=== PATIENT | male | born 1945 | race American Indian/Alaskan Native ===

== ENCOUNTER → 2021-11-06 | Emergency (ER) | payer SELFPAY ==
[~2021-11-06] MED LIST: CALCIUM CHLORIDE 1,000 MG/10 ML SYRINGE IV ONE; DOPamine DRIP 800 MG/D5W 250ML PreMix IV ONE; EPINEPHrine 1 MG/10 ML SYRINGE ONE; NALOXONE 0.4 MG/1 ML INJ ONE; SODIUM BICARB 8.4% 50 MEQ/50 ML SYRINGE IV ONE
--- NOTE | 2021-11-06 21:49 | Emergency Department Report ---
ED General Adult HPI - General Stated complaint: CARDIAC ARREST Source: EMS - History of Present Illness Initial comments: Patient presents to the emergency department via EMS for cardiac arrest. Patient arrives intubated with active bagging. Per EMS the patient was at home after working in his yard and was found unresponsive by his son in a chair of the living room. CPR was started by the patient's son and upon EMS arrival ACLS protocol was followed with return of spontaneous circulation. Per EMS the patient has a history of hypertension and previous blood clot. -: Sudden Improves with: none Worsens with: none Treatments Prior to Arrival: other (ACLS) ED Review of Systems ROS: Stated complaint: CARDIAC ARREST Other details as noted in HPI Comment: Unobtainable due to pts medical conditions ED Physical Exam - General General appearance: other (Intubated with chest compressions being provided) - Head Head exam: Present: atraumatic, normocephalic - Eye Eye exam: Present: normal appearance - ENT ENT exam: Present: mucous membranes dry - Respiratory Respiratory exam: Present: other (Breath sounds bilaterally with BVM) - Cardiovascular Cardiovascular Exam: Present: other (Asystole) - GI/Abdominal GI/Abdominal exam: Present: soft, distended. Absent: normal bowel sounds - Extremities Exam Extremities exam: Present: pedal edema - Neurological Exam Neurological exam: Present: other (GCS: 3T) - Psychiatric Psychiatric exam: Present: other (Not able to assess due to the patient's condition) - Skin Skin exam: Present: dry, intact - Central Line Placement Left Femoral Consent Obtained: emergent situation Time Out Performed: Yes MD Prep: mask, gloves Central Line Prep: Chlorhexidine scrub Ultrasound Used for Placement: No Central Line Lumen Inserted: triple Reason for Insertion: Emergency Venous Access Bloods Obtained for Lab: Yes Central Line Position: good blood return, all ports aspirated, flus, sutured in place with 2-0 Dressing Applied: Tegaderm Patient Tolerated Procedure: well Complications: none ED Medical Decision Making - Medical Decision Making Upon the patient's arrival patient was transferred to the bed and placed on monitor tech Pulse check was obtained and the patient was pulseless CPR was initiated and ACLS protocol was followed Multiple rounds of ACLS protocol were provided with multiple rounds of return of spontaneous circulation Bilateral central lines were placed for venous access and induction of medications tPA given Please see code sheet for details Time of is 2036 Critical Care Time: Yes Critical care time in (mins) excluding proc time.: 75 Critical care attestation.: If time is entered above; I have spent that time in minutes in the direct care of this critically ill patient, excluding procedure time. ED Disposition Clinical Impression: Cardiac arrest Disposition: 20 Is pt being admited?: No Does the pt Need Aspirin: No Condition: Stable
== END ==
LOC: ED 19:50
DX: I46.9 Cardiac arrest, cause unspecified (principal)
CPT/HCPCS: 92950; 99291; J0171; J3490; J1265; J2310